=== PATIENT | female | born 1965 ===

== ENCOUNTER 2017-03-05 13:13 | Emergency (ER) | payer OTHER ==
[2017-03-05 13:25] VITALS: BP 101/73; PULSE 72; TEMP 98.2; O2SAT 100
[2017-03-05] MEDS ORDERED: Sodium Chloride 0.9% 1,000 ML IV STA (13:49)
--- NOTE | 2017-03-05 13:53 | ED PDOC ---
HPI: CCC, URI, Sore Throat Time Seen by Provider: 03/05/17 13:30 Chief Complaint (Nursing): Cough, Cold, Congestion Chief Complaint (Provider): Cough, Cold, Congestion History Per: Patient History/Exam Limitations: no limitations Onset/Duration Of Symptoms: Days Current Symptoms Are (Timing): Still Present Location Of Pain: Sinus/es Sick Contacts (Context): None Associated Symptoms: Nasal Congestion. denies: Fever Ear Symptoms: Bilateral: None Severity: Mild Additional Complaint(s): Patient is a 51 year old female who presents to ED for evaluation of sinus pain with congestion for 10 days with a post nasal drip. Patient also reports abdominal pain with no nausea, vomiting, diarrhea or fever. Past Medical History Reviewed: Historical Data, Nursing Documentation, Vital Signs Vital Signs: Last Vital Signs Temp 98.2 F 03/05/17 13:21 Pulse 72 03/05/17 13:21 Resp 16 03/05/17 13:21 BP 101/73 03/05/17 13:21 Pulse Ox 100 03/05/17 14:18 - Medical History PMH: No Chronic Diseases - Surgical History Surgical History: No Surg Hx - Family History Family History: States: No Known Family Hx - Home Medications Home Medications: Ambulatory Orders Medication Instructions Recorded Ciprofloxacin HCl [Cipro] 500 mg PO BID #20 tab 03/05/17 Pantoprazole Sodium [Protonix] 40 mg PO DAILY #30 tablet. 03/05/17 - Allergies Allergies/Adverse Reactions: Allergies Allergy/AdvReac Type Severity Reaction Status Date / Time Penicillins Allergy RASH Verified 03/05/17 13:20 Review of Systems ROS Statement: Except As Marked, All Systems Reviewed And Found Negative Constitutional: Negative for: Fever, Chills ENT: Positive for: Nose Pain, Nose Discharge, Nose Congestion Cardiovascular: Negative for: Chest Pain Respiratory: Negative for: Shortness of Breath Gastrointestinal: Positive for: Abdominal Pain. Negative for: Nausea, Vomiting , Diarrhea Physical Exam - Reviewed Nursing Documentation Reviewed: Yes Vital Signs Reviewed: Yes - Physical Exam Appears: Positive for: Non-toxic, No Acute Distress Skin: Positive for: Normal Color, Warm. Negative for: Rash Eye Exam: Positive for: Normal appearance ENT: Positive for: TM Is/Are (clear bilaterally ), Sinus Pain/Drainage (right paranasal sinus tenderness ). Negative for: Nasal Congestion, Pharyngeal Erythema, Tonsillar Exudate Neck: Positive for: Normal, Painless ROM Cardiovascular/Chest: Positive for: Regular Rate, Rhythm. Negative for: Murmur Respiratory: Positive for: Normal Breath Sounds. Negative for: Respiratory Distress Gastrointestinal/Abdominal: Positive for: Soft, Tenderness (mild LUQ). Negative for: Distended, Guarding, Rebound Back: Positive for: Normal Inspection Extremity: Positive for: Normal ROM Neurologic/Psych: Positive for: Alert, Oriented - Laboratory Results Result Diagrams: 03/05/17 14:27 03/05/17 14:27 - ECG O2 Sat by Pulse Oximetry: 100 (RA) Pulse Ox Interpretation: Normal Medical Decision Making Medical Decision Making: Time: 1340 Initial impression: Abdominal pain and sinus pain Initial plan: -- CMP -- CBC -- NSF and Pepcid Scribe Attestation: Documented by Kristina Cisneros acting as a scribe for Dirk Britton MD MD Scribe Attestation: All medical record entries made by the Scribe were at my direction and personally dictated by me. I have reviewed the chart and agree that the record accurately reflects my personal performance of the history, physical exam, medical decision making, and the department course for this patient. I have also personally directed, reviewed, and agree with the discharge instructions and disposition. Disposition - Clinical Impression Clinical Impression: Gastritis, Sinusitis - Patient ED Disposition Is Patient to be Admitted: No Counseled Patient/Family Regarding: Studies Performed, Diagnosis - Disposition Referrals: [facility] [Outside] Disposition: Routine/Home Disposition Time: 15:12 Condition: FAIR Prescriptions: Ciprofloxacin HCl [Cipro] 500 mg PO BID #20 tab Pantoprazole Sodium [Protonix] 40 mg PO DAILY #30 tablet. Instructions: Sinusitis (ED), Gastroesophageal Reflux Disease (ED) Print Language: UPPER SORBIAN
[2017-03-05 14:40] LABS: BASO # 0.1 K/uL (0.0-0.2); BASO % 0.9 % (0.0-2.0); EOS # 0.5 K/uL (0.0-0.7); EOS % 8.8 % (0.0-4.0); HEMATOCRIT 36.5 % (34.0-47.0); LYMPH # 1.8 K/uL (1.0-4.3); MEAN CELL VOLUME 89.3 fl (81.0-99.0); MEAN CORPUSCULAR HGB CONC 33.6 g/dL (33.0-37.0); MEAN PLATELET VOLUME 8.5 fl (7.2-11.7); MONO # 0.4 K/uL (0.0-0.8); MONO % 6.9 % (0.0-10.0); NEUT # 2.9 K/uL (1.8-7.0); NEUT % 51.4 % (50.0-75.0); NRBC % 0.1 % (0.0-0.0); RED CELL DISTRIBUTION WIDTH 14.2 % (11.5-14.5); WHITE BLOOD COUNT 5.6 K/uL (4.8-10.8)
[2017-03-05 14:43] LABS: ALB/GLOB RATIO 1.3 (1.0-2.1); ALKALINE PHOSPHATASE 71 U/L (38-126); ALT/SGPT 30 U/L (9-52); AST/SGOT 32 U/L (14-36); BILIRUBIN,TOTAL 0.7 mg/dl (0.2-1.3); BLOOD UREA NITROGEN 10 mg/dl (7-17); CALCIUM 9.3 mg/dL (8.4-10.2); CARBON DIOXIDE 28 mmol/L (22-30); CHLORIDE 103 mmol/L (98-107); GFR AFRICAN-AMERICAN > 60; GLUCOSE,RANDOM 78 mg/dL (65-105); POTASSIUM 4.4 MMOL/L (3.6-5.0); SODIUM 140 mmol/l (132-148)
[2017-03-05 15:39] VITALS: RESP 18
== END 2017-03-05 15:19 | disposition home or self-care (01) ==
LOC: H.ER 13:13
DX: J32.9 Chronic sinusitis, unspecified (principal); K29.70 Gastritis, unspecified, without bleeding; R10.9 Unspecified abdominal pain; Z88.0 Allergy status to penicillin

== ENCOUNTER 2018-11-15 20:50 | Emergency (ER) | payer SELFPAY ==
[2018-11-15] MEDS ORDERED: Sodium Chloride 0.9% 1,000 ML IV STA (22:08)
[2018-11-15 22:46] LABS: BASO % 0.4 % (0.0-2.0); EOS # 0.1 K/uL (0.0-0.7); EOS % 2.3 % (0.0-4.0); HEMOGLOBIN 12.7 g/dL (12.0-16.0); LYMPH # 1.6 K/uL (1.0-4.3); LYMPH % 37.8 % (20.0-40.0); MEAN CELL VOLUME 89.2 fl (81.0-99.0); MEAN CORPUSCULAR HEMOGLOBIN 30.4 pg (27.0-31.0); MEAN CORPUSCULAR HGB CONC 34.1 g/dL (33.0-37.0); MEAN PLATELET VOLUME 7.8 fl (7.2-11.7); MONO # 0.4 K/uL (0.0-0.8); MONO % 8.9 % (0.0-10.0); NEUT # 2.1 K/uL (1.8-7.0); NEUT % 50.6 % (50.0-75.0); NRBC % 0.2 % (0.0-0.0); RBC 4.17 Mil/uL (3.80-5.20); RED CELL DISTRIBUTION WIDTH 14.3 % (11.5-14.5); WHITE BLOOD COUNT 4.2 K/uL (4.8-10.8)
--- NOTE | 2018-11-15 22:47 | ED PDOC ---
HPI: Abdomen Time Seen by Provider: 11/15/18 22:06 Chief Complaint (Nursing): Abdominal Pain Chief Complaint (Provider): Abdominal Pain, Diarrhea, Nausea History Per: Patient History/Exam Limitations: no limitations Onset/Duration Of Symptoms: Days (x3) Current Symptoms Are (Timing): Still Present Additional Complaint(s): 53 year old female with no pmhx presents to the ED for evaluation of nausea, non-bloody diarrhea, and epigastric pain radiating to her back for the past three days. Denies vomiting, fever, chest pain, shortness of breath, and recent travel. PMD: none provided Past Medical History Reviewed: Historical Data, Nursing Documentation, Vital Signs Vital Signs: Last Vital Signs Temp 97.9 F 11/15/18 21:13 Pulse 80 11/15/18 21:13 Resp 18 11/15/18 21:13 BP 104/71 11/15/18 21:13 Pulse Ox 98 11/15/18 21:13 - Medical History PMH: Gastritis - Surgical History Surgical History: No Surg Hx - Family History Family History: States: Unknown Family Hx - Social History Current smoker - smoking cessation education provided: No Ex-Smoker (has not smoked in the last 12 months): Yes Alcohol: None Drugs: Denies - Home Medications Home Medications: Ambulatory Orders Medication Instructions Recorded Ciprofloxacin HCl [Cipro] 500 mg PO BID #20 tab 03/05/17 Pantoprazole Sodium [Protonix] 40 mg PO DAILY #30 tablet. 03/05/17 Esomeprazole Magnesium [Nexium] 20 mg PO QAM #30 ecc 11/16/18 Ondansetron ODT [Zofran ODT] 4 mg PO Q6 PRN #8 odt 11/16/18 - Allergies Allergies/Adverse Reactions: Allergies Allergy/AdvReac Type Severity Reaction Status Date / Time Penicillins Allergy RASH Verified 11/15/18 21:13 Review of Systems ROS Statement: Except As Marked, All Systems Reviewed And Found Negative Constitutional: Negative for: Fever Cardiovascular: Negative for: Chest Pain Respiratory: Negative for: Shortness of Breath Gastrointestinal: Positive for: Nausea, Abdominal Pain (epigastric, radiating to back), Diarrhea (non-bloody). Negative for: Vomiting Physical Exam - Reviewed Nursing Documentation Reviewed: Yes Vital Signs Reviewed: Yes - Physical Exam Appears: Positive for: No Acute Distress Head Exam: Positive for: ATRAUMATIC, NORMOCEPHALIC Skin: Positive for: Normal Color, Warm Eye Exam: Positive for: Normal appearance, EOMI, PERRL Neck: Positive for: Normal, Painless ROM, Supple Cardiovascular/Chest: Positive for: Regular Rate, Rhythm Respiratory: Positive for: Normal Breath Sounds. Negative for: Respiratory Distress Gastrointestinal/Abdominal: Positive for: Soft, Tenderness (RUQ tenderness) Back: Positive for: Normal Inspection Extremity: Positive for: Normal ROM (all extremities) Neurologic/Psych: Positive for: Alert, Oriented (x3). Negative for: Motor/Sensory Deficits - Laboratory Results Result Diagrams: 11/15/18 22:41 11/15/18 22:41 - ECG O2 Sat by Pulse Oximetry: 98 (RA) Pulse Ox Interpretation: Normal Medical Decision Making Medical Decision Making: Time: 2207 Initial Impression: 53 year old female with RUQ pain and diarrhea Initial Plan: --CMP --Lipase --U-dip --U-preg --CBC with differential --Bentyl 20mg PO --Normal saline IV --Pepcid 20mg IV --Urinalysis --US gallbladder and pancreas Scribe Attestation: Documented by Isaura Infante acting as a scribe for Jason Johnson MD. Provider Scribe Attestation: All medical record entries made by the Scribe were at my direction and pers onally dictated by me. I have reviewed the chart and agree that the record accurately reflects my personal performance of the history, physical exam, medical decision making, and the department course for this patient. I have also personally directed, reviewed, and agree with the discharge instructions and disposition. Time: 2347 US RESULTS Findings: Liver Measures 14.5 cm in length. Normal echogenicity of the liver parenchyma. [place] h contour. No mass. No intrahepatic bile duct dilatation. No ascites. Gallbladder Contracted and packed with gallstones. No wall edema. Wall thickness is 0.2 cm. Common bile duct Measures 0.3 cm. No stones. No dilatation. Pancreas Unremarkable as visualized. No mass. No ductal dilatation. Right kidney Measures 9.4 x 3.8 x 4.1 cm. Normal echogenicity. No calculus, mass, or hy dronephrosis. Aorta No aneurysmal dilatation. IVC Unremarkable. Other Findings None. Impression Contracted gallbladder, packed with stones. Otherwise, unremarkable study. Electronically signed on Nov 15, 2018 11:48:46 PM EST by: Jorge Day M.D., [place] Certified By [facility] Trained MRI and CT Specialist Time: 41 -- Labs reviewed and demonstrate no clinically significant abnormalities. Patient reports an improvement of symptoms. Patient is stable upon discharge home with a diagnosis of cholelithiasis. Return precautions and instructions to follow up in the clinic provided. Scribe Attestation: Documented by Layla Pelayo, acting as a scribe for Jason Johnson MD. Provider Scribe Attestation: All medical record entries made by the Scribe were at my direction and personally dictated by me. I have reviewed the chart and agree that the record accurately reflects my personal performance of the history, physical exam, m edical decision making, and the department course for this patient. I have also personally directed, reviewed, and agree with the discharge instructions and disposition. Disposition - Clinical Impression Clinical Impression: Cholelithiasis - Patient ED Disposition Is Patient to be Admitted: No Counseled Patient/Family Regarding: Studies Performed, Diagnosis, Need For Followup, Rx Given - Disposition Referrals: [facility] [Outside] Disposition: Routine/Home Disposition Time: 00:42 Condition: STABLE Prescriptions: Esomeprazole Magnesium [Nexium] 20 mg PO QAM #30 ecc Ondansetron ODT [Zofran ODT] 4 mg PO Q6 PRN #8 odt PRN Reason: Nausea/Vomiting Instructions: Gallstones Forms: [facility] (Kinyarwanda) Print Language: BAHRAINI
[2018-11-15 22:50] LABS: SQUAMOUS EPITHIAL 1 /hpf (0-5); URINE BACTERIA RARE (<OCC); URINE BILIRUBIN NEGATIVE (NEGATIVE); URINE BLOOD SMALL (NEGATIVE); URINE CLARITY SLIGHTY-CLOUDY (Clear); URINE COLOR STRAW (YELLOW); URINE GLUCOSE (UA) NEG (NEGATIVE); URINE LEUKOCYTE ESTERASE TRACE Leu/uL (Negative); URINE PROTEIN NEGATIVE (NEGATIVE); URINE UROBILINOGEN 0.2-1.0 mg/dL (0.2-1.0)
[2018-11-15 22:55] LABS: ALB/GLOB RATIO 1.2 (1.0-2.1); ALBUMIN 4.6 g/dL (3.5-5.0); ALT/SGPT 33 U/L (9-52); AST/SGOT 30 U/L (14-36); BLOOD UREA NITROGEN 11 mg/dl (7-17); CALCIUM 9.3 mg/dL (8.4-10.2); GFR NON-AFRICAN AMERICAN > 60; LIPASE 89 U/L (23-300)
[2018-11-15 22:56] VITALS: RESP 16
[2018-11-16 00:57] VITALS: BP 121/61; PULSE 75; TEMP 98.2; O2SAT 100
--- NOTE | 2018-11-16 11:48 | US ---
Date of service: 11/15/2018 HISTORY: RUQ pain COMPARISON: None available. TECHNIQUE: Sonographic evaluation of the right upper quadrant of the abdomen. FINDINGS: LIVER: Measures 14.5 cm in length and appears within shape and echotexture. No focal hepatic mass identified. The main portal vein appears patent with normal directional flow. No intrahepatic bile duct dilatation. GALLBLADDER: Contracted state of gallbladder. Cholelithiasis. No gallbladder wall thickening or pericholecystic edema. Negative sonographic More's sign as assessed by the sign writer hand. COMMON BILE DUCT: Measures 3 mm. PANCREAS: Not well-visualized. RIGHT KIDNEY: Measures approximately 9.4 x 3.8 x 4.1 cm. No obstructing calculus or hydronephrosis identified. AORTA: Limited visualization appears grossly unremarkable. IVC: Limited visualization appears grossly unremarkable. OTHER FINDINGS: None . IMPRESSION: Cholelithiasis. Contracted state of gallbladder. Negative sonographic More's sign as assessed by the sign writer hand. Preliminary impression was provided by Tindie.
== END 2018-11-16 01:05 | disposition home or self-care (01) ==
LOC: H.ER 20:50
DX: K80.20 Calculus of gallbladder without cholecystitis without obstruction (principal); Z87.891 Personal history of nicotine dependence; Z88.0 Allergy status to penicillin
CPT/HCPCS: 76705; 80053; 81003; 81025; 83690; 85025; 96360; 99284; J2405; J7030